=== PATIENT | male | born 2000 | race Caucasian/White ===

== ENCOUNTER → 2021-04-26 14:12 | Outpatient (BNVA) | payer BC, SELFPAY | PROVIDERS: Family Provider Family Medicine; PCP Specialist; Visit Provider Nurse Practitioner Family | DX: Z20.822 Contact with and (suspected) exposure to COVID-19 (principal) | CPT/HCPCS: 87426; 87635 ==

== ENCOUNTER → 2021-07-04 13:25 | Outpatient (BNVA) | payer BC, SELFPAY | PROVIDERS: Family Provider Family Medicine; PCP Specialist; Visit Provider Nurse Practitioner Family | DX: Z20.822 Contact with and (suspected) exposure to COVID-19 (principal) | CPT/HCPCS: 87635 ==

== ENCOUNTER 2023-08-18 09:29 | Emergency (ER) | payer MEDICAID, SELFPAY ==
[2023-08-18 09:34] VITALS: BP 125/78; PULSE 90; RESP 18; TEMP 36.4; O2SAT 99; BMI 22.1
--- NOTE | 2023-08-18 09:34 | ECG_ITS ---
[facility] Test Date: 2023-08-18 Pat Name: Arnav Leach Department: Room: Gender: Male Night Stocker: : 2000 Requested By: Jazmin Manzanares Order Number: [id number] Restrepo MD: Magnus Kerr M.D. Measurements Intervals Bulger Rate: 86 P: 17 MA: 132 QRS: 57 QRSD: 97 T: 47 QT: 323 QTc: 388 Interpretive Statements SINUS RHYTHM POSSIBLE RIGHT VENTRICULAR CONDUCTION DELAY [RSR (QR) IN V1/V2] No previous ECG available for comparison Electronically Signed On 08-18-2023 11:51:02 DOG BEHAVIORIST by Magnus Kerr M.D. [email or web address] wert county hospitalFifth Generation Computer/store/NU/[id number] f
--- NOTE | 2023-08-18 09:39 | XRR_ITS ---
PROCEDURE INFORMATION: Exam: XR Chest Exam date and time: 08/18/2023 9:44 AM Age: 23 years old Clinical indication: Pain; Angina pectoris; Additional info: Chest pain TECHNIQUE: Imaging protocol: Radiologic exam of the chest. Views: 1 view. COMPARISON: CR XR chest 1V [id number] 11/12/2018 12:00 PM FINDINGS: Lungs: Unremarkable. No consolidation. Pleural spaces: Unremarkable. No pleural effusion. No pneumothorax. Heart/Mediastinum: Unremarkable. No cardiomegaly. Bones/joints: Unremarkable. XR/XR chest 1V portable [id number] IMPRESSION: No acute findings.
--- NOTE | 2023-08-18 09:42 | W.ED.CHESTPA ---
HPI - Chest Pain General: Chief Complaint: Chest Pain Stated Complaint: chest pain, sob Time Seen by Provider: 08/18/23 09:30 Source: patient Mode of arrival: ambulatory Limitations: no limitations History of Present Illness: Patient is a 23-year-old male who presents to ED today with a complaint of left-sided chest pain that he states he noticed after waking from sleep. Patient states pain seems to radiate into his left shoulder and left upper arm. He states when he walked down the stairs this morning he felt like his heart rate shot up and he got dizzy and short of breath. Upon arrival to the emergency department symptoms have improved and he is currently rating pain at a 3/10. He does feel slightly short of breath at rest. He arrives with normal vital signs. Patient has no known cardiac or pulmonary history. No recent surgeries or prolonged periods of inactivity. No other risk factors for pulmonary emboli. He states he has had similar chest pains previously but nothing to this severity. He denies history of exercise intolerance or passing out episodes. MD complaint: chest pain Onset (ago): hour(s) Timing of current episode: constant and other (improved upon arrival to ED) Prior episodes: Yes Onset: awoke with symptoms Pain location: left chest Pain radiation: left arm Severity: mild Pain scale (0-10): 3 Quality: sharp Relieving factors: nothing Exacerbating factors: exertion Associated symptoms: Reports dyspnea; Deny abdominal pain, fever(s), palpitations or syncope Treatment prior to arrival: none Risk Factors: Coronary artery disease risk factors: none Thoracic aortic dissection risk factors: none Review of Systems Const: Denies: fever(s), chills, body aches, fatigue or malaise ENMT: Denies: throat pain, odynophagia, nasal discharge, nasal congestion or sinus pain Card: Reports: chest pain, lightheadedness and dyspnea on exertion; Denies: palpitations, irregular heart rhythm, edema, swelling of feet/ankles, syncope, orthopnea, leg pain with exertion or acrocyanosis Resp: Reports: dyspnea and pain on inspiration; Denies: productive cough, non-productive cough, wheezing, stridor, change in phlegm color, hemoptysis or chest congestion GI: Denies: abdominal pain Musc: Denies: neck pain, back pain, extremity pain or joint pain Skin/Breast: Denies: rash Neuro: Denies: headache(s), numbness in extremities, weakness in extremities or sensory changes PFSH ED PFSH: Social History Smoking and tobacco/nicotine status: former use of tobacco/nicotine Physical Exam Const: COMMON NORMALS: no acute distress, average body habitus, patient oriented x3, no limitations, healthy appearing, alert and well nourished GENERAL APPEARANCE: cooperative ORIENTATION/CONSCIOUSNESS: Yes awake, Yes oriented to person, Yes oriented to place and Yes oriented to time HENMT: FACE & SINUS: normal facial exam Neck/C-Spine: COMMON NORMALS: no JVD Chest: COMMONS NORMALS: normal inspection of the chest and normal palpation of entire chest wall Resp: COMMON NORMALS: normal respiratory effort and clear to auscultation bilaterally AUSCULTATION: clear to auscultation bilaterally Cardio: COMMON NORMALS: no JVD, regular rate and regular rhythm RATE: regular rate RHYTHM: regular rhythm GI: COMMON NORMALS: Normal to inspection, nondistended, normoactive bowel sounds present, Soft to palpation and non-tender PALPATION: Yes Soft to palpation Extremity: COMMON NORMALS: capillary refill normal, no joint enlargement, no clubbing, cyanosis or edema, no calf tenderness and no pedal edema GENERAL: Yes normal exam except as noted Neuro: ZULEMA COMA SCALE: document GCS findings [place] coma scale eye opening: Spontaneous [place] coma scale verbal response: Orientated [place] coma scale motor response: Obey commands [place] coma scale total score: 15 COMMON NORMALS: patient oriented x3 SENSORIUM/ORIENTATION: Yes alert, Yes oriented to person, Yes oriented to place and Yes oriented to time Skin: COMMON NORMALS: no rashes or lesions noted GENERAL SKIN EXAM: no rashes or lesions noted Course Vital Signs: Vital signs: Vital Signs Temperature 97.5 F L 08/18/23 09:34 Pulse Rate 78 08/18/23 10:15 Respiratory Rate 16 08/18/23 10:15 Blood Pressure 121/73 08/18/23 10:15 Pulse Oximetry 97 08/18/23 10:15 Oxygen Delivery Me thod Room Air 08/18/23 09:34 MDM - Chest Pain Medical Decision Making Patient is a 23-year-old male with no known past medical history here for left-sided chest pain that began this morning after he awoke from sleep. He arrives in no acute distress with stable vital signs. His blood work including a D-dimer are unremarkable. His EKG shows no ischemic changes or abnormal arrhythmias. CXR is unremarkable. At this time I do not have any concern for emergent etiology for his chest discomfort. He was given strict return ED precautions. Medical Records I reviewed the patient's medical records. Lab Data I reviewed the patient's lab results. 08/18/23 09:48 08/18/23 09:48 Radiology Impressions Chest X-Ray 08/18/23 09:39 IMPRESSION: No acute findings. Laboratory Results WBC 6.43 10^3/uL (3.29-11.43) 08/18/23 09:48 RBC 4.98 10^6/uL (3.85-5.65) 08/18/23 09:48 Hgb 14.80 g/dL (11.27-16.99) 08/18/23 09:48 Hct 45.2 % (37-53) 08/18/23 09:48 MCV 90.8 fl (82-101) 08/18/23 09:48 MCH 29.7 pg (27-33) 08/18/23 09:48 MCHC 32.7 g/dL (30-55) 08/18/23 09:48 RDW 11.8 % (12.1-15.1) L 08/18/23 09:48 Plt Count 239 10^3/cmm (157-399) 08/18/23 09:48 MPV 9.3 fL (7.4-10.4) 08/18/23 09:48 Neut % (Auto) 71.0 % 08/18/23 09:48 Lymph % (Auto) 15.4 % 08/18/23 09:48 [place] % (Auto) 11.4 % 08/18/23 09:48 Eos % (Auto) 1.4 % 08/18/23 09:48 Baso % (Auto) 0.5 % 08/18/23 09:48 Neut # (Auto) 4.57 10^3/uL (1.8-7.7) 08/18/23 09:48 Lymph # (Auto) 1.0 10^3/uL (0.8-4.8) 08/18/23 09:48 [place] # (Auto) 0.7 10^3/uL (0.2-0.9) 08/18/23 09:48 Eos # (Auto) 0.1 10^3/uL (0.0-0.8) 08/18/23 09:48 Baso # (Auto) 0.0 10^3/uL (0.0-0.1) 08/18/23 09:48 Nucleated RBC % (auto) 0 % 08/18/23 09:48 Nucleated RBCs # 0.0 /100WBC 08/18/23 09:48 D-Dimer <= 0.27 ug/mLFEU (0-0.59) 08/18/23 09:48 Sodium 139 mmol/L (136-145) 08/18/23 09:48 Potassium 4.1 mmol/L (3.5-5.1) 08/18/23 09:48 Chloride 104 mmol/L (98-107) 08/18/23 09:48 Carbon Dioxide 26 mmol/L (22-29) 08/18/23 09:48 Anion Gap 13.1 (5-19) 08/18/23 09:48 BUN 11 mg/dL (6-20) 08/18/23 09:48 Creatinine 0.9 mg/dL (0.7-1.2) 08/18/23 09:48 GFR Calculation 105.5 mL/min (90-130) 08/18/23 09:48 Glucose 94 mg/dL (65-115) 08/18/23 09:48 Calculated Osmolality 287 mOsm/kg (285-295) 08/18/23 09:48 Calcium 9.0 mg/dL (8.5-10.5) 08/18/23 09:48 Total Bilirubin 0.2 mg/dL (0.15-1.2) 08/18/23 09:48 AST 14 U/L (0-40) 08/18/23 09:48 ALT 17 U/L (0-41) 08/18/23 09:48 Alkaline Phosphatase 63 U/L (40-130) 08/18/23 09:48 Total Protein 7.5 g/dL (6.6-8.7) 08/18/23 09:48 Albumin 4.4 g/dL (3.5-5.2) 02/20/24 09:48 Globulin 3.1 g/dL (1.3-4.6) 08/18/23 09:48 All radiology interpretation(s) finalized by discharge Discharge Plan Discharge Patient Disposition: Home Clinical Impression: Atypical chest pain Condition: Stable Prescriptions: No Action No Known Home Medications Discharge Orders: Discharge ED (Routine); Ordered 08/18/23 Ordered By: Jazmin Manzanares Referrals: Christine Corral MD [Primary Care Provider] - Diomedes Lock MD [Family Provider] - Patient Instructions: Chest Pain - Noncardiac, Chest Pain (DC) Activity Restrictions/Additional Instructions: As we discussed you need to return to the emergency department for worsening chest pain, shortness of breath, difficulty breathing, dizziness or passing out episodes, or any other concerns you may have. Coding Level of Care Code ED Cloud Software Engineer for Ghassan Crouch
[2023-08-18 09:58] LABS: Basophils % 0.5 %; Eosinophils # 0.1 10^3/uL (0.0-0.8); Eosinophils % 1.4 %; Hematocrit 45.2 % (37-53); Lymphocytes % 15.4 %; Mean Corpuscular HGB Conc 32.7 g/dL (30-55); Mean Corpuscular Hemoglobin 29.7 pg (27-33); Mean Corpuscular Volume 90.8 fl (82-101); Mean Platelet Volume 9.3 fL (7.4-10.4); Monocytes # 0.7 10^3/uL (0.2-0.9); Monocytes % 11.4 %; Neutrophils # 4.57 10^3/uL (1.8-7.7); Nucleated Red Blood Cells % 0 %; Platelet Count 239 10^3/cmm (157-399); Red Blood Count 4.98 10^6/uL (3.85-5.65); Red Cell Distribution Width 11.8 % (12.1-15.1); White Blood Count 6.43 10^3/uL (3.29-11.43)
[2023-08-18 10:15] VITALS: BP 121/73; PULSE 78; RESP 16; O2SAT 97
[2023-08-18 10:19] LABS: D Dimer <= 0.27 ug/mLFEU (0-0.59)
[2023-08-18 10:25] LABS: Alanine Aminotransferase 17 U/L (0-41); Albumin Level 4.4 g/dL (3.5-5.2); Alkaline Phosphatase 63 U/L (40-130); Anion Gap 13.1 (5-19); Aspartate Amino Transferase 14 U/L (0-40); Blood Urea Nitrogen 11 mg/dL (6-20); Carbon Dioxide 26 mmol/L (22-29); Chloride 104 mmol/L (98-107); Globulin 3.1 g/dL (1.3-4.6); Glomerular Filtration Rate 105.5 mL/min (90-130); Glucose 94 mg/dL (65-115); Osmolality Calculated 287 mOsm/kg (285-295); Potassium 4.1 mmol/L (3.5-5.1); Sodium 139 mmol/L (136-145); Total Bilirubin 0.2 mg/dL (0.15-1.2); Total Protein 7.5 g/dL (6.6-8.7)
[2023-08-18 11:08] VITALS: BP 128/91; PULSE 81; RESP 18; O2SAT 97
== END 2023-08-18 11:09 | disposition home or self-care (01) ==
PROVIDERS: Emergency Provider Physician Assistant; Family Provider Family Medicine; PCP Specialist
DX: R07.89 Other chest pain (principal); Z87.891 Personal history of nicotine dependence
CPT/HCPCS: 36415; 71045; 80053; 85025; 85378; 93005; 99285